=== PATIENT | female | born 1960 | race Caucasian/White ===

== ENCOUNTER 2017-09-14 07:00 | Day surgery (SDC) | payer OTHER, MEDICAID ==
[~2017-09-14] VITALS: Ht 162.6 cm; Wt 70.3 kg
[~2017-09-14 07:00] MED LIST: CEFAZOLIN 1 GM IVPB PREMIX 50 ML IV ONE
[2017-09-14] MEDS ORDERED: D5/0.45 NS 1,000 ML IV SCH (15:27)
[2017-09-14] MEDS ORDERED: MIDAZOLAM HCL 5 MG/5 ML VIAL IVP PRN (15:30)
[2017-09-14] MEDS ORDERED: MEPERIDINE HCL/PF 25 MG/ML DISP.SYRIN IVP PRN (15:30)
[2017-09-14] MEDS ORDERED: HYDROmorphone 1 MG INJ. 1 MG/ML AMPUL IVP PRN ×2 (15:30→18:30)
[2017-09-14] MEDS ORDERED: fentaNYL CITRATE/PF 100 MCG/2 ML AMP IVP PRN (15:30)
[2017-09-14] MEDS ORDERED: ONDANSETRON HCL 4 MG/2 ML VIAL IVP ONE (15:30)
[2017-09-14] MEDS ORDERED: NALOXONE HCL 0.4 MG/ML AMP (NARCAN) IVP ONE (15:30)
[2017-09-14] MEDS ORDERED: fentaNYL CITRATE/PF 100 MCG/2 ML AMP ONE (15:50)
[2017-09-14] MEDS ORDERED: LR 1,000 ML IV.SOLN IV ONE (15:50)
[2017-09-14] MEDS ORDERED: PROPOFOL 200MG/ 20ML VIAL (DIPRIVAN) IV ONE (15:50)
[2017-09-14] MEDS ORDERED: MEPERIDINE HCL/PF 50 MG/ML AMP ONE (15:50)
[2017-09-14] MEDS ORDERED: MIDAZOLAM HCL 5 MG/ML VIAL (VERSED) IV ONE (15:50)
[2017-09-14] MEDS ORDERED: ONDANSETRON HCL 4 MG/2 ML VIAL ONE (15:50)
[2017-09-14] MEDS ORDERED: SEVOFLURANE 15 MIN GAS INH ONE (15:50)
[2017-09-14] MEDS ORDERED: CEFAZOLIN 1 GM IVPB PREMIX 50 ML IV ONE (15:50)
[2017-09-14] MEDS ORDERED: DEXAMETHASONE SOD PHOSPHATE 4 MG/ML VIAL ONE (15:50)
[2017-09-14] MEDS ORDERED: NS IRRIG SOLN 1000 ML IR ONE (15:50)
[2017-09-14] MEDS ORDERED: LIDOCAINE 1% 10 MG/ML, 20 ML MDV ONE (15:50)
[2017-09-14] MEDS ORDERED: KETOROLAC TROMETHAMINE 30 MG VIAL INFIL ONE (16:00)
[2017-09-14 17:20] VITALS: BP_SYST 132
[2017-09-14] MEDS ORDERED: HYDROcodone/ACETAMIN 5-325 MG TAB (NORCO/ VICODIN) PO PRN ×2 (18:30)
== END 2017-09-14 17:20 | disposition home or self-care (01) ==
LOC: SDS 07:00 → SMU 07:00 → SDS 17:20
PROVIDERS: ATTEND Colon & Rectal Surgery
DX: D17.21 Benign lipomatous neoplasm of skin and subcutaneous tissue of right arm (principal); Z90.710 Acquired absence of both cervix and uterus; Z98.890 Other specified postprocedural states; Z83.3 Family history of diabetes mellitus; J00 Acute nasopharyngitis [common cold]; Z68.26 Body mass index [BMI] 26.0-26.9, adult; Z79.899 Other long term (current) drug therapy
CPT/HCPCS: 23073; 88304; J0690; J1100; J2001; J2175; J2250; J2405; J2704; J3010; J7120; 88305

== ENCOUNTER 2020-01-17 08:29 | Day surgery (SDC) | payer OTHER, SELFPAY ==
--- NOTE | 2020-01-16 11:59 | NUR ---
Patient called [facility]. She was notified her COVID-19 "Negative" results and instructed to follow the preventive measures (universal source control). Patient verbalizes understanding.
[~2020-01-17] VITALS: Ht 162.6 cm; Wt 71.7 kg
[~2020-01-17 08:29] MED LIST changes: -CEFAZOLIN 1 GM IVPB PREMIX 50 ML IV ONE; +CEFAZOLIN SOD 1 GM in D5W 50 ML IV ONE
[2020-01-17] MEDS ORDERED: HYDROcodone/ACETAMIN 5-325 MG TAB (NORCO/ VICODIN) PO PRN (09:45)
[2020-01-17] MEDS ORDERED: ONDANSETRON HCL 4 MG/2 ML VIAL IVP ONE (09:46)
[2020-01-17] MEDS ORDERED: GLYCOPYRROLATE 0.2 MG/ML VIAL IJ ONE (09:46)
[2020-01-17] MEDS ORDERED: SEVOFLURANE 15 MIN GAS INH ONE (09:46)
[2020-01-17] MEDS ORDERED: LIDOCAINE 1% 10 MG/ML, 20 ML MDV INJ ONE (09:46)
[2020-01-17] MEDS ORDERED: OXYMETAZOLINE HCL 0.05% NASAL SPRAY NS ONE (09:46)
[2020-01-17] MEDS ORDERED: PHENYLEPHRINE HCL 10 MG/ML VIAL (NEOSYNEPHRINE) IV ONE (09:46)
[2020-01-17] MEDS ORDERED: KETOROLAC TROMETHAMINE 30 MG VIAL IVP ONE (09:46)
[2020-01-17] MEDS ORDERED: METOCLOPRAMIDE HCL 10 MG/2 ML VIAL IVP ONE (09:46)
[2020-01-17] MEDS ORDERED: BACITRACIN ZINC 15 GM TOPICAL OINTMENT TP ONE (09:46)
[2020-01-17] MEDS ORDERED: LIDOCAINE/EPI 1% 1:100000 20 ML VIAL INJ ONE (09:46)
[2020-01-17] MEDS ORDERED: PROPOFOL 200MG/ 20ML VIAL (DIPRIVAN) IV ONE (09:46)
[2020-01-17] MEDS ORDERED: MIDAZOLAM HCL 5 MG/5 ML VIAL IVP ONE (09:46)
[2020-01-17] MEDS ORDERED: DEXAMETHASONE SOD PHOSPHATE 4 MG/ML VIAL IVP ONE (09:46)
[2020-01-17] MEDS ORDERED: NS IRRIG SOLN 1000 ML IR ONE (09:46)
[2020-01-17] MEDS ORDERED: fentaNYL CITRATE 250 MCG/5 ML AMP IV ONE (09:46)
[2020-01-17] MEDS ORDERED: LR 1,000 ML IV.SOLN IV ONE (09:46)
[2020-01-17] MEDS ORDERED: HYDROmorphone 1 MG INJ. 1 MG/ML AMPUL IVP PRN ×2 (11:30)
[2020-01-17] MEDS ORDERED: LR 1,000 ML IV SCH (11:30)
[2020-01-17] MEDS ORDERED: ONDANSETRON HCL 4 MG/2 ML VIAL IVP PRN (11:30)
[2020-01-17 13:58] VITALS: BP_SYST 139
== END 2020-01-17 14:26 | disposition home or self-care (01) ==
LOC: SDS 08:29 → SMU 08:30 → SDS 14:26
PROVIDERS: ATTEND Otolaryngology Plastic Surgery within the Head & Neck
DX: J34.89 Other specified disorders of nose and nasal sinuses (principal); J30.9 Allergic rhinitis, unspecified; J34.1 Cyst and mucocele of nose and nasal sinus; J34.2 Deviated nasal septum; J34.3 Hypertrophy of nasal turbinates; Z79.899 Other long term (current) drug therapy; Z20.828 Contact with and (suspected) exposure to other viral communicable diseases
CPT/HCPCS: 30140; 30520; 31240; A4649; J0690; J1100; J1885; J2001; J2250; J2370; J2405; J2704; J2765; J3010; J3490; J7060; J7120; U0003

== ENCOUNTER 2021-08-12 05:37 | Day surgery (SDC) | payer OTHER ==
[~2021-08-12] VITALS: Ht 162.6 cm; Wt 69.9 kg
[2021-08-12] MEDS ORDERED: MEPERIDINE 100 MG INJ. 100 MG/ML VIAL ONE (06:42)
[2021-08-12] MEDS ORDERED: SIMETHICONE 40 MG/0.6 ML ML ONE (06:42)
[2021-08-12] MEDS ORDERED: GLYCOPYRROLATE 0.2 MG/ML VIAL ONE (06:43)
[2021-08-12] MEDS ORDERED: MIDAZOLAM HCL 5 MG/5 ML VIAL ONE (06:43)
[2021-08-12 09:02] VITALS: BP_SYST 123
== END 2021-08-12 08:40 | disposition home or self-care (01) ==
LOC: SDS 05:37
PROVIDERS: ATTEND Colon & Rectal Surgery
DX: Z12.11 Encounter for screening for malignant neoplasm of colon (principal); Z79.899 Other long term (current) drug therapy; Z20.822 Contact with and (suspected) exposure to COVID-19
CPT/HCPCS: 36415 ×2; 45378; 87426; G0378; J2175; J2250; U0003; J3490